=== PATIENT | male | born 1990 ===

== ENCOUNTER 2020-09-20 13:34 | Emergency (ER) | payer SELFPAY ==
[2020-09-20 13:50] VITALS: BP 137/78
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
== END 2020-09-20 15:25 | disposition home or self-care (01) ==
LOC: ED 13:34
DX: M54.2 Cervicalgia (principal); V89.2XXA Person injured in unspecified motor-vehicle accident, traffic, initial encounter; Y93.89 Activity, other specified; Y92.410 Unspecified street and highway as the place of occurrence of the external cause; Y99.8 Other external cause status
CPT/HCPCS: 99282